=== PATIENT | female | born 1940 | race Caucasian/White ===

== ENCOUNTER → 2017-08-10 | Outpatient (CLI) | payer BC ==
[2016-02-24 11:00] VITALS: BP 156/90
[~2017-08-10] MED LIST: CHOL500016 PO; LISI-334 PO; LISI10TA2 PO; MULT-658 PO; OMEP40CA5 PO; SIMV10TA3 PO; SIMV20TA3 PO
--- NOTE | 2017-08-10 11:05 | CARD ---
APPROVED REPORT EXAM: Two-dimensional and M-mode echocardiogram with Doppler and color Doppler. Other Information Quality : GoodHR: 77bpm Rhythm : NSR INDICATION Hypertension 2D DIMENSIONS RVDd3.2 (2.9-3.5cm)Left Atrium(2D)3.2 (1.6-4.0cm) IVSd1.2 (0.7-1.1cm)Aortic Root(2D)2.7 (2.0-3.7cm) LVDd4.1 (3.9-5.9cm)LVOT Diameter2.4 (1.8-2.4cm) PWd1.2 (0.7-1.1cm)LVDs2.7 (2.5-4.0cm) FS (%) 34.4 %SV46.7 ml LVEF(%)63.9 (>50%) Aortic Valve AoV Peak Guy.160.3cm/sAoV VTI33.2cm AO Peak GR.10.3mmHgLVOT Peak Guy.92.6cm/s AO Mean GR.5mmHgAVA (VMAX)2.52cm2 Mitral Valve MV E Wpfmudnj02.0cm/sMV E Peak Gr.4mmHg MV DECEL [id number] A Ekoupqpf283.5cm/s MV E Mean Gr.1mmHgE/A Ratio0.9 MV A [id number] Pulmonary Valve PV Peak Gsxvjvxf054.7cm/s Tricuspid Valve TR P. [id number]/sTR Peak Gr.25mmHg Pulmonary Vein S1 Ecfrrmgf08.2cm/sD2 Ygljwfyw94.1cm/s PVa [id number] LEFT VENTRICLE The left ventricle is normal size. There is mild concentric left ventricular hypertrophy. The left ve ntricular systolic function is normal and the ejection fraction is within normal range. The Ejection Fraction is 60-65%. There is normal LV segmental wall motion. Transmitral Doppler flow pattern is Gra de I-abnormal relaxation pattern. RIGHT VENTRICLE The right ventricle is normal size. There is normal right ventricular wall thickness. The right ventr icular systolic function is normal. ATRIA The left atrium size is normal. The right atrium size is normal. The interatrial septum is intact wit h no evidence for an atrial septal defect or patent foramen ovale as noted on 2-D or Doppler imaging. AORTIC VALVE The aortic valve is mildly sclerotic. The aortic valve is trileaflet. Doppler and Color Flow revealed no significant aortic regurgitation. There is no significant aortic valvular stenosis. MITRAL VALVE Mitral annular calcification is mild. The mitral valve leaflets are thickened and calcified. There is no evidence of mitral valve prolapse. There is no mitral valve stenosis. Doppler and Color Flow reve aled trace mitral regurgitation. TRICUSPID VALVE Doppler and Color Flow revealed trace tricuspid regurgitation. The pulmonary artery systolic pressure is estimated at 28 mmHg. There is no pulmonary hypertension. PULMONIC VALVE The pulmonary valve is not well visualized but appears to open adequately. Doppler and Color Flow rev ealed mild pulmonic valvular regurgitation. There is no pulmonic valvular stenosis by spectral Dopple r. GREAT VESSELS The aortic root is normal in size. The ascending aorta is mildly dilated at 3.7cm The pulmonary arter y is normal. The IVC is normal in size and collapses >50% with inspiration. PERICARDIAL EFFUSION There is no evidence of significant pericardial effusion. Critical Notification Critical Value: No <Conclusion> The left ventricular systolic function is normal and the ejection fraction is within normal range. Th e Ejection Fraction is 60-65%. There is normal LV segmental wall motion.
== END | disposition home or self-care (01) ==
LOC: ECHO 09:03
PROVIDERS: ATTEND Internal Medicine Cardiovascular Disease
DX: I37.1 Nonrheumatic pulmonary valve insufficiency (principal); I10 Essential (primary) hypertension
CPT/HCPCS: 93306

== ENCOUNTER 2018-04-13 12:14 | Observation (INO) | payer BC ==
[2018-04-13 12:54] LABS: ADD MAN DIFF? NO
[2018-04-13] MEDS: ASPIRIN CHEWABLE 81 MG TABLET. PO (12:58)
[2018-04-13 12:59] LABS: BASO # 0.1 x10^3/uL (0.0-0.2); BASO % 1 % (0-3); EOS # 0.1 x10^3/uL (0.0-0.7); EOS % 2 % (0-3); HEMATOCRIT 39.2 % (36.0-47.0); HEMOGLOBIN 13.4 g/dL (12.0-15.5); LYMPH # 1.3 x10^3/uL (1.0-4.8); LYMPH % 25 % (24-48); MEAN CORPUSCULAR HEMOGLOBIN 28 pg (25-35); MEAN CORPUSCULAR HGB CONC 34 g/dL (31-37); MEAN CORPUSCULAR VOLUME 81 fL (79-100); MONO # 0.4 x10^3/uL (0.0-1.1); MONO % 8 % (0-9); NEUT # 3.4 x10^3uL (1.8-7.7); NEUT % 64 % (31-73); PLATELET COUNT 234 x10^3/uL (140-400); RED BLOOD COUNT 4.86 x10^6/uL (3.50-5.40); RED CELL DISTRIBUTION WIDTH 14.6 % (11.5-14.5); WHITE BLOOD COUNT 5.3 x10^3/uL (4.0-11.0)
[2018-04-13 13:08] LABS: ANION GAP 4 (6-14); BLOOD UREA NITROGEN 13 mg/dL (7-20); BUN/CREATININE RATIO 16 (6-20); CALCIUM 9.1 mg/dL (8.5-10.1); CARBON DIOXIDE 29 mmol/L (21-32); CHLORIDE 106 mmol/L (98-107); CREATININE 0.8 mg/dL (0.6-1.0); GFR 69.4; GLUCOSE 104 mg/dL (70-99); POTASSIUM 3.7 mmol/L (3.5-5.1); SODIUM 139 mmol/L (136-145)
[2018-04-13 13:14] LABS: ALBUMIN 3.5 g/dL (3.4-5.0); ALBUMIN/GLOBULIN RATIO 0.9 (1.0-1.7); ALK PHOS 120 U/L (46-116); ALT (SGPT) 27 U/L (14-59); AST (SGOT) 19 U/L (15-37); LIPASE 71 U/L (73-393); TOTAL BILIRUBIN 0.7 mg/dL (0.2-1.0); TOTAL PROTEIN 7.4 g/dL (6.4-8.2)
[2018-04-13 13:15] LABS: TROPONINI < 0.017 ng/mL (0.000-0.055)
[2018-04-13 13:19] LABS: NT-PRO BNP 159 pg/mL (0-449)
[2018-04-13] MEDS ORDERED: ONDANSETRON PF 4 MG/2 ML VIAL. IV (13:45)
[2018-04-13] MEDS: IV NORMAL SALINE 1000ML BAG 1,000 ML IV ×2 (14:18→20:51)
[2018-04-13 16:09] LABS: MAGNESIUM 2.3 mg/dL (1.8-2.4)
[2018-04-13 17:11] LABS: TROPONINI < 0.017 ng/mL (0.000-0.055)
[2018-04-13] MEDS: LIDOCAINE (700MG/PATCH) PATCH. TD (17:52)
[2018-04-13 19:40] LABS: TROPONINI < 0.017 ng/mL (0.000-0.055)
[2018-04-13] MEDS: LISINOPRIL 10 MG TABLET PO (20:46)
[2018-04-13] MEDS: SIMVASTATIN 20 MG TABLET PO (20:46)
[2018-04-13] MEDS: PATCH REMOVAL. MC (20:47)
[2018-04-14] MEDS: ACETAMINOPHEN 325 MG TABLET. PO (04:00)
[2018-04-14] MEDS: IV NORMAL SALINE 1000ML BAG 1,000 ML IV (05:37)
[2018-04-14] MEDS: PANTOPRAZOLE 40 MG TABLET.DR. PO (10:22)
[2018-04-14] MEDS: LIDOCAINE (700MG/PATCH) PATCH. TD (10:22)
== END 2018-04-14 13:50 | disposition home or self-care (01) ==
LOC: ER 12:14 → ED HOLD 13:36 → 6 SOUTH 16:28
DX: I20.9 Angina pectoris, unspecified (principal); R07.89 Other chest pain; K21.9 Gastro-esophageal reflux disease without esophagitis; I10 Essential (primary) hypertension; E78.5 Hyperlipidemia, unspecified; Z82.49 Family history of ischemic heart disease and other diseases of the circulatory system; Z83.3 Family history of diabetes mellitus; Z79.899 Other long term (current) drug therapy; Z90.49 Acquired absence of other specified parts of digestive tract
CPT/HCPCS: 36415; 71045; 80053; 83690; 83735; 83880; 84484; 85025; 93005; 96360; 96361; 99285-25; G0378; G0379; J7030